=== PATIENT | male | born 2000 | race Caucasian/White ===

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

== ENCOUNTER 2022-11-23 06:56 | Emergency (ER) | payer SELFPAY ==
[~2022-11-23] VITALS: Wt 99.0 kg
[~2022-11-23 06:56] MED LIST changes: +PREDNISONE20 M1 PO
[2022-11-23 07:01] VITALS: BP 129/93
[2022-11-23] MEDS ORDERED: FLUTICASONE-SA1 EAC4 IH (09:12)
== END 2022-11-23 08:02 | disposition home or self-care (01) ==
LOC: ED 06:56
DX: J45.901 Unspecified asthma with (acute) exacerbation (principal); R00.0 Tachycardia, unspecified; F17.200 Nicotine dependence, unspecified, uncomplicated; Z79.51 Long term (current) use of inhaled steroids; Z28.310 Unvaccinated for COVID-19
CPT/HCPCS: J7512